=== PATIENT | female | born 1975 | race Caucasian/White ===

== ENCOUNTER 2018-07-26 08:32 | Day surgery (SDC) | payer OTHER ==
[~2018-07-26] VITALS: Ht 165.1 cm; Wt 102.7 kg
[2018-07-26] MEDS ORDERED: VENTOLIN INHALER (09:03)
[2018-07-26] MEDS ORDERED: SINGULAIR (09:03)
[2018-07-26] MEDS ORDERED: ZANTAC (09:03)
[2018-07-26] MEDS ORDERED: ADVAIR (09:03)
[2018-07-26] MEDS ORDERED: METFORMIN (09:03)
[2018-07-26 09:09] VITALS: Ht 165.1 cm; Wt 102.7 kg
[2018-07-26 09:55] VITALS: BP 105/50; PULSE 67; RESP 20
--- NOTE | 2018-07-26 10:16 | PREAC ---
Date/Time of Note Date/Time of Note DATE: 07/26/18 TIME: 10:14 Anesthesia Eval and Record Evaluation Time Pre-Procedure Interview DATE: 07/26/18 TIME: 10:14 Age 43 Sex female NPO: 8 hrs Preoperative diagnosis Abdominal Pain , Diarrhea Planned procedure EGD, Colonoscopy Past Medical History Past Medical History: Includes Cardio: HTN, Dyslipidemia Endo: Diabetes GI: Morbid obesity Surgery & Anesthesia Issues No known issue Meds Anticoagulation: No Beta Maria G within 24 hr: No Reason Beta Maria G not given: Pt. not on B-Maria G Reported Medications [Advair] No Conflict Check 07/26/18 [Zantac] No Conflict Check 07/26/18 [Metformin] No Conflict Check 07/26/18 [Ventolin Inhaler] No Conflict Check 07/26/18 [Singulair] No Conflict Check 07/26/18 Meds reviewed: Yes Allergies Coded Allergies: No Known Allergy (Unverified , 07/26/18) Allergies Reviewed: Yes Labs/Studies Labs Reviewed: Reviewed by anesthesiologist test: Negative Studies: ECG Pre-procedure Exam Last vitals Vital Signs Date Temp Pulse Resp B/P (MAP) Pulse Ox O2 O2 Flow FiO2 Time Delivery Rate 07/26/18 98.0 67 20 105/50 93 Room Air 09:55 (68) Airway: Adequate mouth opening, Adequate thyromental dist Mallampati: Mallampati III Teeth: Normal Lung: Normal Heart: Normal ASA Physical Status ASA physical status: 3 Emergency: None Planned Anesthetic General/MAC: MAC Planned Pain Management Parenteral pain med Pre-operative Attestations Prior to commencing anesthesia and surgery, the patient was re-evaluated, there was verification of: *The patient's identity *The results of appropriate recent lab work and preoperative vital signs *The above evaluation not changing prior to induction *Anesthetic plan, risk benefits, alternative and complications discussed with patient/family; questions answered; patient/family understands, accepts and wishes to proceed. TIKA CANELA MD Jul 26, 2018 10:16
[2018-07-26] MEDS ORDERED: PROPOFOL 60 ML ONE (10:22)
[2018-07-26] MEDS ORDERED: LIDOCAINE 2% (SDV) 5 ML INJ ONE (10:22)
--- NOTE | 2018-07-26 10:48 | PAC ---
Date/Time of Note Date/Time of Note DATE: 07/26/18 TIME: 10:47 Post-Anesthesia Notes Post-Anesthesia Note Last documented vital signs Vital Signs Date Temp Pulse Resp B/P (MAP) Pulse Ox O2 O2 Flow FiO2 Time Delivery Rate 07/26/18 98.0 67 20 105/50 93 Room Air 09:55 (68) Activity: WNL Respiratory function: WNL Cardiovascular function: WNL Mental status: Baseline Pain reasonably controlled: Yes Hydration appropriate: Yes Nausea/Vomiting absent: Yes Comments BP:105/52, P:78, Spo2:100%, T:98,7 TIKA CANELA MD Jul 26, 2018 10:48
[2018-07-26 11:28] VITALS: BP 101/57; RESP 16
== END 2018-07-26 12:47 | disposition home or self-care (01) ==
LOC: GIL 08:32
PROVIDERS: ATTEND Internal Medicine Gastroenterology
DX: R19.4 Change in bowel habit (principal); K64.8 Other hemorrhoids; K29.60 Other gastritis without bleeding; I10 Essential (primary) hypertension; E78.5 Hyperlipidemia, unspecified; E11.9 Type 2 diabetes mellitus without complications
CPT/HCPCS: 43239; 45378; 84703; 88305; Z7610